=== PATIENT | male | born 1985 | race Caucasian/White ===

== ENCOUNTER → 2020-10-11 06:53 | Outpatient (CLI) | payer OTHER, SELFPAY ==
--- NOTE | 2020-10-11 | DI.MRI.S_ITS ---
PROCEDURE: MR ANKLE RT WO CON INDICATIONS: Pain in right ankle and joints of right foot TECHNIQUE: Noncontrast sagittal T1 spin echo and T2 fast spin echo with fat saturation, axial proton density fast spin echo and T2 fast spin echo with fat saturation, coronal T1 spin echo and T2 fast spin echo with fat saturation through the ankle/hindfoot. COMPARISON: None. FINDINGS: Bones and joints: Bones: No marrow contusions or fractures. Coalitions: No hindfoot coalitions. Talar dome: No osteochondral injuries of the talar dome. Other: No pathologic joint effusions. Circumferential subcutaneous edema is present. Medial structures: Posterior tibialis: Intact. Mild tenosynovitis. Flexor digitorum longus: Intact. Mild tenosynovitis. Flexor hallucis longus: Intact. Posterior tibial neurovascular bundle: Normal. Deltoid ligament complex: Intact. Spring ligament: Intact. Lateral structures: Anterior talofibular ligament: Markedly attenuated in size and appearance suggestive of age-indeterminate partial rupture/sprain. Calcaneofibular ligament: Not well seen suggestive of rupture/sprain also age indeterminate. Posterior talofibular ligament: Intact. Anterior tibiofibular ligament: Intact. Posterior tibiofibular ligament: Intact. Intermalleolar ligament: Intact. Tibiofibular syndesmosis: Normal. Peroneus longus: Intact. Minimal tenosynovitis Peroneus brevis: Intact. Bony peroneal tubercle and retrotrochlear prominence: Normal. Sinus tarsi: Normal. Anterior structures: Tibialis anterior: Intact. Extensor hallucis longus: Intact. Extensor digitorum longus: Intact. Dorsal talonavicular ligament: Intact. Posterior and plantar structures: Achilles tendon: Complete rupture of the Achilles tendon, centered approximately 6.8 cm cephalad to the calcaneal attachment. Overall defect measures approximately 2.9 cm in length. There is extensive surrounding soft tissue edema, fluid and swelling. Plantar fascia: Intact. Muscles: No abductor digiti quinti muscle atrophy to suggest Blair neuropathy. IMPRESSION: Complete rupture of the Achilles tendon, as detailed above with adjacent soft tissue edema and fluid. Sprain of the anterior talofibular and calcaneofibular ligaments, technically age indeterminate. Circumferential subcutaneous edema. Minimal tenosynovitis involving the posterior tibialis, flexor digitorum longus and peroneus longus tendons. Dictated by: Darnell Houser M.D. on 10/11/2020 at 9:25 Approved by: Darnell Houser M.D. on 10/11/2020 at 9:33
== END ==
PROVIDERS: Referring Provider Orthopaedic Surgery; Visit Provider Orthopaedic Surgery
DX: M25.571 Pain in right ankle and joints of right foot (principal); S86.011A Strain of right Achilles tendon, initial encounter; S93.411A Sprain of calcaneofibular ligament of right ankle, initial encounter; S93.491A Sprain of other ligament of right ankle, initial encounter; X58.XXXA Exposure to other specified factors, initial encounter
CPT/HCPCS: 73721